=== PATIENT | female | born 1950 | race Caucasian/White ===

== ENCOUNTER 2025-03-04 17:51 | Emergency (ER) | payer BC, SELFPAY ==
[2025-03-04 17:55] VITALS: BP 166/65
[2025-03-04] MEDS: TORADOL 30 MG IM (19:16)
[2025-03-04] MEDS: VALIUM INJECTION 5 MG IM (19:18)
[2025-03-04 19:21] VITALS: BMI 32.1
[2025-03-04] MEDS: ROXICODONE 5 MG PO (20:13)
[2025-03-04] MEDS: LIDOCAINE 4% PATCH 1 PATCH TOPICAL (20:14)
--- NOTE | 2025-03-04 20:55 | ED.GENMED ---
History of Present Illness
General
Chief Complaint: Back Pain
Time Seen by Provider: 03/04/25 18:49
History of Present Illness
History of Present Illness:
74-year-old female presents the emergency department for evaluation of 'back spasms'. She has been seen here numerous times in the past and states this feels similar. States this is a frequent occurrence for her, she has acute onset lumbar back
pain and she is unable to whiting can worker an erect posture without severe discomfort. Denies any lower extremity paresthesias or weakness. No loss of bladder or bowel function. Denies any fevers or chills. Took Tylenol without relief
Past History
Past History
ED Past Medical History: CAD, GERD, HTN, Hypercholesterolemia, NIDDM and Hyperthyroidism
ED Past Surgical History: Gynecological, Orthopedic and Other
Social History
Tobacco: Former smoker
Alcohol: None
Drug: None
Personal:
Living: with family
Review of Systems
Review of Systems
Allergies reviewed?: Yes
All Other Systems: ROS reviewed and negative except as documented in HPI and ROS
Phy Exam
Physical Exam
Physical Exam:
GEN: Appears to be in pain, supporting herself on the bed with the hips bent to 90 degrees
HEENT: Oral mucosa moist, no scleral icterus
Cardiac: Regular rate
Lung: No respiratory distress, no tachypnea
MSK: No gross deformity or injuries. No palpable deformities or tenderness to the lumbar spine
Skin: Good color, no pallor or jaundice, no rashes
Neuro: AO x3, moves all extremities freely
Psych: Calm, cooperative
Course
Orders/Labs/Results
Orders:
Orders
03/04/25 18:55
Ketorolac [Toradol] 30 mg IM NOW STA
diazePAM [Valium Injection] 5 mg IM NOW STA
03/04/25 20:07
Lidocaine [Lidocaine 4% Patch] 1 patch TOPICAL NOW STA
Apply Lidocaine patch(s) to:: lumbar
Oxycodone [Roxicodone] 5 mg PO NOW STA
03/04/25 21:30
HYDROmorphone [Dilaudid] 0.5 mg IM NOW STA
Vital Signs
Initial and Last Documented VS:
Initial Vital Signs
Temp Pulse Resp BP Pulse Ox
97.8 F 80 18 166/65 99
03/04/25 17:55 03/04/25 17:55 03/04/25 17:55 03/04/25 17:55 03/04/25 17:55
Last Documented Vital Signs
Temp Pulse Resp BP Pulse Ox
97.8 F 68 18 159/60 95
03/04/25 17:55 03/04/25 23:09 03/04/25 17:55 03/04/25 23:09 03/04/25 23:09
MDM/Problems Addressed
MDM/Problems Addressed:
Patient received numerous doses of IM and p.o. pain medications, ultimately after IM Dilaudid she felt much better, suitable for discharge home. She has no lower extremity neuropathy or radiculopathy that would warrant imaging at this point
*Critical Care Note
Total Time (30-74mins, 75-104mins- exclusive of procedures): Not Applicable
ED Attending Note
-
Portions of this chart may have been created with voice recognition software.� Occasional wrong word or��sound alike� substitutions may have occurred due to the inherent limitations of voice recognition software.
Discharge Plan
Departure
Patient Disposition: Home (Routine Discharge)
Date of Disposition: 03/04/25
Time of Disposition: 22:54
Patient with high blood pressure during this ER visit?: No
Discharge Problem:
Back spasm
Instructions: Low Back Pain (DC)
Prescriptions:
New
oxycodone 5 mg tablet
5 mg PO Q8H PRN (Reason: Pain) Qty: 10 0RF
No Action
insulin glargine [Lantus U-100 Insulin] 1,000 UNITS/10 ML solution
SC HS
levothyroxine 100 MCG tablet
100 mcg PO DAILY
lisinopril 10 MG tablet
40 mg PO DAILY
rosuvastatin 20 MG tablet
40 mg PO QPM
metoprolol tartrate 25 MG tablet
25 mg PO BID
omeprazole 20 MG tablet,delayed release (DR/EC)
20 mg PO DAILY
saxagliptin-metformin [Kombiglyze XR] 1 EACH tablet, ER multiphase 24 hr
1 ea PO DAILY
Multiple Vitamins
1 tab PO DAILY
ondansetron 4 MG tablet,disintegrating
4 mg PO TIDPRN PRN (Reason: NAUSEA) Qty: 15 0RF
clopidogrel 75 MG tablet
1 tab PO DAILY
ondansetron 4 MG tablet,disintegrating
4 mg PO TIDPRN PRN (Reason: nausea/vomiting) Qty: 8 0RF
tramadol 50 MG tablet
50 mg PO Q6HPRN PRN (Reason: severe pain) Qty: 8 0RF
amoxicillin-pot clavulanate 875-125 mg tablet
1 tab PO BID 7 Days Qty: 14 0RF
cyclobenzaprine 10 mg tablet
10 mg PO TID PRN (Reason: muscle spasm) Qty: 10 0RF
cyclobenzaprine 5 mg tablet
5 mg PO BID PRN (Reason: muscle spasm) Qty: 14 0RF
diazepam [Valium] 5 mg tablet
5 mg PO HS PRN (Reason: muscle spasm) Qty: 5 0RF
oxycodone-acetaminophen [Percocet] 5-325 mg tablet
1 tab PO Q8H PRN (Reason: Pain) Qty: 10 0RF
Referrals:
UNKNOWN - PT DOES,NOT KNOW [Family Provider] -
Interventions
Interventions:
*Risk Screen - Suicide Last Done: 03/04/25 17:55
*General Assessment Last Done: 03/04/25 17:59
*Neglect/Abuse Screening Last Done: 03/04/25 17:59
*ED- Fall Risk Assessment Last Done: 03/04/25 19:22
*ED COVID-19 Vaccine History Last Done: 03/04/25 19:22
*Nursing Disposition Last Done: 03/04/25 23:10
ED-Musculoskeletal Assessment Last Done: 03/04/25 19:22
Discharge Date and Time
Discharge Date/Time: 03/04/25 23:11
Print Language: HONDURAN
[2025-03-04] MEDS: DILAUDID 0.5 MG IM (21:52)
[2025-03-04 23:09] VITALS: BP 159/60
== END 2025-03-04 23:11 | disposition home or self-care (01) ==
LOC: EMR 17:51
PROVIDERS: EMERGENCY PHYSICIAN Emergency Medicine
DX: M62.830 Muscle spasm of back (principal); M54.50 Low back pain, unspecified; I25.10 Atherosclerotic heart disease of native coronary artery without angina pectoris; K21.9 Gastro-esophageal reflux disease without esophagitis; I10 Essential (primary) hypertension; E78.00 Pure hypercholesterolemia, unspecified; E11.9 Type 2 diabetes mellitus without complications; E05.90 Thyrotoxicosis, unspecified without thyrotoxic crisis or storm; Z87.891 Personal history of nicotine dependence
CPT/HCPCS: 99282; 96372